=== PATIENT | male | born 1990 | race American Indian/Alaskan Native ===

== ENCOUNTER 2019-08-17 18:21 | Emergency (ER) | payer SELFPAY ==
[2019-08-17 18:39] VITALS: BP 113/70
--- NOTE | 2019-08-17 19:30 | Emergency Department Report ---
Chief Complaint: Chest Pain Stated Complaint: CHEST PAIN Time Seen by Provider: 08/17/19 19:21 - HPI History of Present Illness: 29-year-old -Indian male presents to the emergency room for intermittent left hand tingling and numbness. Patient reports that when his arm is bent it for long period of time it seems to go to sleep. Patient denies any tingling or numbness at this time. Patient came in first reporting chest pain does not have any chest pain at this time. - Exam Vital Signs: Vital Signs 08/17/19 18:36 Temperature 98.3 F Pulse Rate 61 Respiratory 20 Rate Blood Pressure 113/70 [Right] O2 Sat by Pulse 96 Oximetry Physical Exam: Patient is alert and oriented x3 no acute distress Cardiac clear to auscultation bilateral regular rate and rhythm no murmurs appreciated Left arm full range of motion no tenderness no swelling warm to touch capillary refills intact and less than 2sec Patient is ambulatory without difficulties. MSE screening note: Focused history and physical exam performed. Due to findings the following was ordered: 29-year-old -Indian male presents to the emergency room for intermittent left hand tingling and numbness. Patient reports that when his arm is bent it for long period of time it seems to go to sleep. Patient denies any tingling or numbness at this time. Patient came in first reporting chest pain does not have any chest pain at this time. Education to patient on compression of the ulnar radial nerve when arm is bent. Discussed with patient to be aware. Also discussed with patient he can follow- up with a primary care provider patient is been referred to Dr. Stephanie Cha and [facility] ED Disposition for MSE Disposition: Z-07 MED SCREENING EXAM-LEFT Is pt being admited?: No Does the pt Need Aspirin: No Condition: Stable Additional Instructions: refrain from eating salt. Stop smoking. Follow up with a pcp. Referrals: CIELO ALCAZAR MD [Staff Physician] - 3-5 Days [facility] [Provider Group] - 3-5 Days
== END 2019-08-17 19:30 | disposition left against medical advice (07) ==
LOC: ED 18:21
DX: R07.89 Other chest pain (principal); Z53.21 Procedure and treatment not carried out due to patient leaving prior to being seen by health care provider
CPT/HCPCS: 93005

== ENCOUNTER 2019-09-26 14:58 | Emergency (ER) | payer SELFPAY ==
--- NOTE | 2019-09-26 16:29 | Event Note ---
ED Screening Note Date of service: 09/26/19 Time: 16:28 ED Screening Note: Patient presents with complaints of left-sided chest pain and left arm pain and numbness intermittently x1 month States pain is currently present Was recently diagnosed with anxiety, however states this feels different This initial assessment/diagnostic orders/clinical plan/treatment(s) is/are subject to change based on patients health status, clinical progression and re- assessment by fellow clinical providers in the ED. Further treatment and workup at subsequent clinical providers discretion. Patient/guardian urged not to elope from the ED as their condition may be serious if not clinically assessed and managed. Initial orders include: Labs ekg chest xr
--- NOTE | 2019-09-26 17:14 | XRay Report ---
CHEST 2 VIEWS INDICATION / CLINICAL INFORMATION: chest pain. COMPARISON: None available. FINDINGS: SUPPORT DEVICES: None. HEART / MEDIASTINUM: No significant abnormality. LUNGS / PLEURA: No significant pulmonary or pleural abnormality. No pneumothorax. ADDITIONAL FINDINGS: No significant additional findings. IMPRESSION: No significant abnormality Signer Name: Tyson Forbes MD FACR Signed: 09/26/2019 5:09 PM Workstation Name: [id number]
[2019-09-26 18:07] LABS: Basophils # (Auto) 0.1 K/mm3 (0.0-0.1); Eosinophils # (Auto) 0.1 K/mm3 (0.0-0.4); Eosinophils % (Auto) 2.9 % (0.0-4.3); Hematocrit 47.7 % (35.5-45.6); Lymphocytes # (Auto) 1.8 K/mm3 (1.2-5.4); Lymphocytes % (Auto) 36.1 % (13.4-35.0); Mean Corpuscular HGB Conc 34 % (32-34); Mean Corpuscular Volume 92 fl (84-94); Monocytes # (Auto) 0.4 K/mm3 (0.0-0.8); Monocytes % (Auto) 8.6 % (0.0-7.3); Platelet Count 128 K/mm3 (140-440); Red Blood Count 5.21 M/mm3 (3.65-5.03); Red Cell Distribution Width 13.4 % (13.2-15.2)
[2019-09-26 18:35] LABS: Alanine Aminotransferase 23 units/L (7-56); Albumin 4.9 g/dL (3.9-5); BUN/Creatinine Ratio 7; Blood Urea Nitrogen 8 mg/dL (9-20); Calcium 9.8 mg/dL (8.4-10.2); Hemolysis Index 8
--- NOTE | 2019-09-26 20:16 | Emergency Department Report ---
ED General Adult HPI - General Chief complaint: Chest Pain Stated complaint: LEFT ARM PAIN Time Seen by Provider: 09/26/19 19:55 Source: patient Mode of arrival: Ambulatory Limitations: No Limitations - History of Present Illness Initial comments: Patient is a 29-year-old male who presents emergency room with complaints of intermittent left arm pain and tingling over a month. He states that he also has substernal chest pain for over a month. He has no pain currently. He denies any nausea, vomiting, diarrhea, fever, leg swelling, shortness of breath. He denies any recent travel or recent surgery. Past medical history of hypertension and takes amlodipine. Patient states that he did see a primary care doctor who started him on Klonopin. He endorses tobacco use. No allergies to meds. No family history cardiac history. he denies any neck pain. - Related Data Allergies Allergy/AdvReac Type Severity Reaction Status Date / Time No Known Allergies Allergy Verified 09/26/19 15:01 ED Review of Systems ROS: Stated complaint: LEFT ARM PAIN Other details as noted in HPI Comment: All other systems reviewed and negative ED Past Medical Hx - Past Medical History Hx Hypertension: Yes - Surgical History Past Surgical History?: No - Social History Smoking Status: Never Smoker Substance Use Type: None ED Physical Exam - General Limitations: No Limitations General appearance: alert, in no apparent distress - Head Head exam: Present: atraumatic, normocephalic - Eye Eye exam: Present: normal appearance - ENT ENT exam: Present: mucous membranes moist - Neck Neck exam: Present: normal inspection, tenderness. Absent: full ROM - Respiratory Respiratory exam: Present: normal lung sounds bilaterally. Absent: respiratory distress, wheezes, rales, rhonchi, stridor, chest wall tenderness, accessory muscle use, decreased breath sounds, prolonged expiratory - Cardiovascular Cardiovascular Exam: Present: regular rate, normal rhythm, normal heart sounds. Absent: systolic murmur, diastolic murmur, rubs, gallop - Extremities Exam Extremities exam: Present: normal inspection, full ROM, normal capillary refill, other (FROM of the LUE, no bony ttp, no deformity, neurovascularly intact, sensation is fully intact). Absent: tenderness, pedal edema, joint swelling, calf tenderness - Neurological Exam Neurological exam: Present: alert, oriented X3, CN II-XII intact, normal gait. Absent: motor sensory deficit - Psychiatric Psychiatric exam: Present: normal affect, normal mood - Skin Skin exam: Present: warm, dry, intact ED Course Vital Signs 09/26/19 09/26/19 15:04 20:50 Temperature 97.9 F Pulse Rate 97 H 69 Respiratory 17 Rate Blood Pressure 125/84 Blood Pressure 148/99 [Right] O2 Sat by Pulse 100 Oximetry ED Medical Decision Making - Lab Data Result diagrams: 09/26/19 17:30 09/26/19 17:30 Lab Results 09/26/19 09/26/19 09/26/19 Range/Units 17:30 17:30 17:30 WBC 5.0 (4.5-11.0) K/mm3 RBC 5.21 H (3.65-5.03) M/mm3 Hgb 16.0 H (11.8-15.2) gm/dl Hct 47.7 H (35.5-45.6) % MCV 92 (84-94) fl MCH 31 (28-32) pg MCHC 34 (32-34) % RDW 13.4 (13.2-15.2) % Plt Count 128 L (140-440) K/mm3 Lymph % (Auto) 36.1 H (13.4-35.0) % [place] % (Auto) 8.6 H (0.0-7.3) % Eos % (Auto) 2.9 (0.0-4.3) % Baso % (Auto) 1.0 (0.0-1.8) % Lymph # 1.8 (1.2-5.4) K/mm3 [place] # 0.4 (0.0-0.8) K/mm3 Eos # 0.1 (0.0-0.4) K/mm3 Baso # 0.1 (0.0-0.1) K/mm3 Seg Neutrophils % 51.4 (40.0-70.0) % Seg Neutrophils # 2.6 (1.8-7.7) K/mm3 Sodium 141 (137-145) mmol/L Potassium 4.0 (3.6-5.0) mmol/L Chloride 103.2 (98-107) mmol/L Carbon Dioxide 23 (22-30) mmol/L Anion Gap 19 mmol/L BUN 8 L (9-20) mg/dL Creatinine 1.2 (0.8-1.3) mg/dL Estimated GFR > 60 ml/min BUN/Creatinine Ratio 7 % Glucose 81 (75-100) mg/dL Calcium 9.8 (8.4-10.2) mg/dL Total Bilirubin 0.80 (0.1-1.2) mg/dL AST 19 (5-40) units/L ALT 23 (7-56) units/L Alkaline Phosphatase 49 (35-129) units/L Troponin T < 0.010 (0.00-0.029) ng/mL Total Protein 8.2 (6.3-8.2) g/dL Albumin 4.9 (3.9-5) g/dL Albumin/Globulin Ratio 1.5 % - EKG Data EKG shows normal: sinus rhythm, axis, intervals, QRS complexes Rate: normal - EKG Data 09/26/19 20:18 no STEMI - Radiology Data Radiology results: report reviewed CHEST 2 VIEWS INDICATION / CLINICAL INFORMATION: chest pain. COMPARISON: None available. FINDINGS: SUPPORT DEVICES: None. HEART / MEDIASTINUM: No significant abnormality. LUNGS / PLEURA: No significant pulmonary or pleural abnormality. No pneumothorax. ADDITIONAL FINDINGS: No significant additional findings. IMPRESSION: No significant abnormality Signer Name: Tyson Forbes MD FACR Signed: 09/26/2019 5:09 PM Workstation Name: [id number] Transcribed By: MS Dictated By: Tyson Forbes MD Electronically Authenticated By: Tyson Forbes MD Signed Date/Time: 09/26/191708 DD/ 08 TD/TT: - Medical Decision Making Patient is a 29-year-old male who presents emergency room with complaints of intermittent left arm pain and tingling over a month. He states that he also has substernal chest pain for over a month. He has no pain currently. He denies any nausea, vomiting, diarrhea, fever, leg swelling, shortness of breath. He denies any recent travel or recent surgery. Past medical history of hypertension and takes amlodipine. Patient states that he did see a primary care doctor who started him on Klonopin. He endorses tobacco use. No allergies to meds. No family history cardiac history. he denies any neck pain. Vitals are normal. No abnormality on physical examination as documented in chart. EKG within normal limits. Chest x-ray with no acute process. Labs are normal. Troponin is negative. PERC criteria negative for PE. Patient has been having these symptoms ongoing for over a month and was diagnosed with anxiety and started on Klonopin by his primary care physician. He is presenting today with atypical chest pain but has no pain currently. Patient's heart score is 2, GINO score 0, very low risk for cardiac event, do not suspect ACS at this time. Advised patient Please continue taking your medications that you are prescribed by your previous doctors. Avoid tobacco use. Follow-up with a primary care doctor. Follow-up with a yard laborer. Follow-up with [facility]. Return to emergency room immediately for any new or worsening symptoms. - Differential Diagnosis PTX, PNA, anxiety, anemia, GERD, PUD, ACS, costochondritis, pericarditis Critical care attestation.: If time is entered above; I have spent that time in minutes in the direct care of this critically ill patient, excluding procedure time. ED Disposition Clinical Impression: Atypical chest pain, Tingling of left upper extremity Disposition: DC- TO HOME OR SELFCARE Is pt being admited?: No Does the pt Need Aspirin: No Condition: Stable Instructions: Chest Pain (ED) Additional Instructions: Please continue taking your medications that you are prescribed by your previous doctors. Avoid tobacco use. Follow-up with a primary care doctor. Follow-up with a yard laborer. Follow-up with [facility]. Return to emergency room immediately for any new or worsening symptoms. Referrals: [facility] MD LINSEY [Primary Care Provider] - 2-3 Days LIZETH HAN MD [Staff Physician] - 2-3 Days [facility] [Outside] - 2-3 Days Time of Disposition: 20:17 Print Language: SIER[place] LEONEAN
[2019-09-26 20:51] VITALS: BP 148/99
== END 2019-09-26 20:51 | disposition home or self-care (01) ==
LOC: ED 14:58
DX: R20.2 Paresthesia of skin (principal); R07.89 Other chest pain; I10 Essential (primary) hypertension
CPT/HCPCS: 36415; 71046; 80053; 84484; 85025; 93005

== ENCOUNTER 2019-10-25 16:51 | Emergency (ER) | payer SELFPAY ==
[2019-10-25 17:02] VITALS: BP 137/87
--- NOTE | 2019-10-25 18:01 | XRay Report ---
CHEST 1 VIEW 10/25/2019 5:19 PM INDICATION / CLINICAL INFORMATION: Chest Pain. COMPARISON: 2 views of the chest from 09/26/2019. FINDINGS: SUPPORT DEVICES: None. HEART / MEDIASTINUM: No significant abnormality. LUNGS / PLEURA: No significant pulmonary or pleural abnormality. No pneumothorax. ADDITIONAL FINDINGS: No significant additional findings. IMPRESSION: 1. No acute abnormality of the chest. Signer Name: Shay Truong MD Signed: 10/25/2019 5:56 PM Workstation Name: [id number]
[2019-10-25] MEDS ORDERED: ALUM-MAG HYDROXIDE-SIMETHICONE 200-200-20MG/5ML ORAL LIQD 30 ML PO ONE (18:28)
[2019-10-25] MEDS ORDERED: LIDOCAINE VISCOUS 2% 15 ML ORAL LIQD PO ONE (18:28)
--- NOTE | 2019-10-25 18:30 | Emergency Department Report ---
ED Chest Pain HPI - General Chief Complaint: Chest Pain Stated Complaint: CHEST PAIN, CHILLS Time Seen by Provider: 10/25/19 18:02 Source: patient Mode of arrival: Ambulatory Limitations: No Limitations - History of Present Illness Initial Comments: This is a pleasant 29-year-old male who presents the emergency department the chief complaint of substernal chest pressure with tingling in his left arm over the past many months. He reports he has been coming back and forth to the emergency department multiple times for this issue. He reports this usually occurs at night and will make it difficult for him to sleep. He rates his current pain is a 6 out of 10 describes it as pressure points to the center of his chest. He states at night when he tries to go to bed the pain will intensify and would not allow him to sleep. He states he has not slept in 2 days. He reports a past medical history of hypertension, denies any history of hyperlipidemia, diabetes, smoking, illicit drug use specifically denying cocaine, amphetamines. Denies family history of cardiovascular disease or thromboembolic disease. He denies any recent travel or immobilization. He denies any associated fevers, chills, night sweats, headache, dizziness, blurry vision, nausea, vomiting, diarrhea, shortness of breath, hemoptysis, lower extremity edema or any other associated symptoms. - Related Data Previous Rx's Medication Instructions Recorded Last Taken Type Omeprazole 20 mg PO DAILY #30 capsule. 10/25/19 Unknown Rx Allergies Allergy/AdvReac Type Severity Reaction Status Date / Time No Known Allergies Allergy Verified 09/26/19 15:01 Heart Score - HEART Score History: Slightly suspicious EKG: Normal Age: < 45 Risk factors: 1-2 risk factors Troponin: < normal limit HEART Score: 1 ED Review of Systems ROS: Stated complaint: CHEST PAIN, CHILLS Other details as noted in HPI Comment: All other systems reviewed and negative Constitutional: denies: chills, fever Eyes: denies: eye pain, eye discharge, vision change ENT: denies: ear pain, throat pain Respiratory: denies: cough, shortness of breath, wheezing Cardiovascular: as per HPI, chest pain. denies: palpitations Endocrine: no symptoms reported Gastrointestinal: denies: abdominal pain, nausea, diarrhea Genitourinary: denies: urgency, dysuria Musculoskeletal: denies: back pain, joint swelling, arthralgia Skin: denies: rash, lesions Neurological: denies: headache, weakness, paresthesias Psychiatric: denies: anxiety, depression Hematological/Lymphatic: denies: easy bleeding, easy bruising ED Past Medical Hx - Past Medical History Previous Medical History?: Yes Hx Hypertension: Yes - Surgical History Past Surgical History?: No - Social History Smoking Status: Never Smoker Substance Use Type: None - Medications Home Medications: Home Medications Medication Instructions Recorded Confirmed Last Taken Type Omeprazole 20 mg PO DAILY #30 capsule. 10/25/19 Unknown Rx ED Physical Exam - General Limitations: No Limitations General appearance: alert, in no apparent distress - Head Head exam: Present: atraumatic, normocephalic - Eye Eye exam: Present: normal appearance, PERRL Pupils: Present: normal accommodation - ENT ENT exam: Present: normal exam, normal orophraynx, mucous membranes moist - Neck Neck exam: Present: normal inspection, full ROM. Absent: tenderness, meningismus - Respiratory Respiratory exam: Present: normal lung sounds bilaterally. Absent: respiratory distress, wheezes, rales, rhonchi, stridor - Cardiovascular Cardiovascular Exam: Present: regular rate, normal rhythm, normal heart sounds. Absent: systolic murmur, diastolic murmur, rubs, gallop - GI/Abdominal GI/Abdominal exam: Present: soft, normal bowel sounds. Absent: distended, guarding, rebound, rigid - Rectal Rectal exam: Present: deferred - Extremities Exam Extremities exam: Present: normal inspection, full ROM. Absent: tenderness, calf tenderness (Negative Homans sign bilaterally, normal equal radial pulses bilaterally.) - Back Exam Back exam: Present: normal inspection, full ROM. Absent: tenderness, CVA tenderness (R), CVA tenderness (L) - Neurological Exam Neurological exam: Present: alert, oriented X3, normal gait - Psychiatric Psychiatric exam: Present: normal affect, normal mood - Skin Skin exam: Present: warm, dry, intact, normal color. Absent: rash ED Course Vital Signs 10/25/19 17:00 Temperature 98.8 F Pulse Rate 92 H Respiratory 16 Rate Blood Pressure 137/87 O2 Sat by Pulse 100 Oximetry JOSE score - Jose Score Age > 65: (0) No Aspirin use within the Past 7 Days: (0) No 3 or more CAD Risk Factors: (0) No 2 or more Angina events in past 24 hrs: (0) No Known CAD with more than 50% Stenosis: (0) No Elevated Cardiac Markers: (0) No ST Deviation Greater than 0.5mm: (0) No JOSE Score: 0 ED Medical Decision Making - Lab Data Result diagrams: 10/25/19 18:44 10/25/19 18:44 Lab Results 10/25/19 10/25/19 10/25/19 Range/Units 18:44 18:44 18:44 WBC 5.0 (4.5-11.0) K/mm3 RBC 4.87 (3.65-5.03) M/mm3 Hgb 14.9 (11.8-15.2) gm/dl Hct 44.3 (35.5-45.6) % MCV 91 (84-94) fl MCH 31 (28-32) pg MCHC 34 (32-34) % RDW 13.3 (13.2-15.2) % Plt Count 119 L (140-440) K/mm3 Lymph % (Auto) 29.6 (13.4-35.0) % [place] % (Auto) 8.9 H (0.0-7.3) % Eos % (Auto) 1.7 (0.0-4.3) % Baso % (Auto) 0.6 (0.0-1.8) % Lymph # 1.5 (1.2-5.4) K/mm3 [place] # 0.5 (0.0-0.8) K/mm3 Eos # 0.1 (0.0-0.4) K/mm3 Baso # 0.0 (0.0-0.1) K/mm3 Seg Neutrophils % 59.2 (40.0-70.0) % Seg Neutrophils # 3.0 (1.8-7.7) K/mm3 PT 13.7 (12.2-14.9) Sec. INR 1.03 (0.87-1.13) APTT 35.4 (24.2-36.6) Sec. D-Dimer 135.00 (0-234) ng/mlDDU Sodium 137 (137-145) mmol/L Potassium 3.7 (3.6-5.0) mmol/L Chloride 103.9 (98-107) mmol/L Carbon Dioxide 19 L (22-30) mmol/L Anion Gap 18 mmol/L BUN 9 (9-20) mg/dL Creatinine 1.3 (0.8-1.3) mg/dL Estimated GFR > 60 ml/min BUN/Creatinine Ratio 7 % Glucose 96 (75-100) mg/dL Calcium 9.6 (8.4-10.2) mg/dL Total Bilirubin 0.50 (0.1-1.2) mg/dL AST 18 (5-40) units/L ALT 31 (7-56) units/L Alkaline Phosphatase 46 (35-129) units/L Troponin T (0.00-0.029) ng/mL Total Protein 7.2 (6.3-8.2) g/dL Albumin 4.3 (3.9-5) g/dL Albumin/Globulin Ratio 1.5 % 10/25/19 10/25/19 Range/Units 18:44 20:59 WBC (4.5-11.0) K/mm3 RBC (3.65-5.03) M/mm3 Hgb (11.8-15.2) gm/dl Hct (35.5-45.6) % MCV (84-94) fl MCH (28-32) pg MCHC (32-34) % RDW (13.2-15.2) % Plt Count (140-440) K/mm3 Lymph % (Auto) (13.4-35.0) % [place] % (Auto) (0.0-7.3) % Eos % (Auto) (0.0-4.3) % Baso % (Auto) (0.0-1.8) % Lymph # (1.2-5.4) K/mm3 [place] # (0.0-0.8) K/mm3 Eos # (0.0-0.4) K/mm3 Baso # (0.0-0.1) K/mm3 Seg Neutrophils % (40.0-70.0) % Seg Neutrophils # (1.8-7.7) K/mm3 PT (12.2-14.9) Sec. INR (0.87-1.13) APTT (24.2-36.6) Sec. D-Dimer (0-234) ng/mlDDU Sodium (137-145) mmol/L Potassium (3.6-5.0) mmol/L Chloride (98-107) mmol/L Carbon Dioxide (22-30) mmol/L Anion Gap mmol/L BUN (9-20) mg/dL Creatinine (0.8-1.3) mg/dL Estimated GFR ml/min BUN/Creatinine Ratio % Glucose (75-100) mg/dL Calcium (8.4-10.2) mg/dL Total Bilirubin (0.1-1.2) mg/dL AST (5-40) units/L ALT (7-56) units/L Alkaline Phosphatase (35-129) units/L Troponin T < 0.010 < 0.010 (0.00-0.029) ng/mL Total Protein (6.3-8.2) g/dL Albumin (3.9-5) g/dL Albumin/Globulin Ratio % - EKG Data -: EKG Interpreted by Wy EKG shows normal: sinus rhythm Rate: normal - EKG Data When compared to previous EKG there are: no significant change (Sinus rhythm with a ventricular rate of 76 bpm, no acute ST or T wave abnormalities, no STEMI, normal axis, normal intervals, no change when compared to 09/26/2019 or 08/17/2019) - Radiology Data Radiology results: report reviewed XRay Report Signed Patient: CHRISTA YOUNG MR# : [id number] : 1990 Acct:[id number] Age/Sex: 29 / M ADM Date: 10/25/19 Loc: ED Attending Dr: Ordering Physician: WINSTON HEARD MD Date of Service: 10/25/19 Procedure(s): XR chest 1V ap Accession Number(s): [id number] cc: ED MD ORQUIDEA Fluoro Time In Minutes: CHEST 1 VIEW 10/25/2019 5:19 PM INDICATION / CLINICAL INFORMATION: Chest Pain. COMPARISON: 2 views of the chest from 09/26/2019. FINDINGS: SUPPORT DEVICES: None. HEART / MEDIASTINUM: No significant abnormality. LUNGS / PLEURA: No significant pulmonary or pleural abnormality. No pneumothorax. ADDITIONAL FINDINGS: No significant additional findings. IMPRESSION: 1. No acute abnormality of the chest. Signer Name: Shay Truong MD Signed: 10/25/2019 5:56 PM Workstation Name: [id number] Transcribed By: LINDA Dictated By: Shay Truong MD Electronically Authenticated By: Shay Truong MD Signed Date/Time: 10/25/19 2806 - Medical Decision Making Patient nontoxic in no acute distress. Vitals are stable. EKG was unchanged from previous and the patient had 2- troponins 2 hours apart and the heart score was 1 making him very low risk for ACS at this time. He had no evidence of pneumothorax or pneumo mediastinum or pneumoperitoneum on x-ray and no evidence of pneumonia. He had no widening of the mediastinum, no tearing or ripping pain to the back and normal equal radial pulses bilaterally making an acute aortic dissection less likely. He had a negative d-dimer and is typically PERC negative making PE unlikely. He was given a GI cocktail but states this did not affect his pain. After further questioning he did report that his pain at night is associated with some belching and burping I think this could be related to some acid reflux. Educated him about diet changes drink a full glass of water with every meal and GI follow-up. Also educated the patient about proper sleep hygiene and after further questioning he did report that he does play video games for hours a day and night and this may be related to his poor sleep at this time. I recommended melatonin and Benadryl and outpatient follow-up with GI and cardiology as needed. Patient instructed to return to the [facility] department he develops any change or worsening symptoms. He verbalized understanding the diagnosis, treatment plan and follow-up instructions and all his questions were answered. - Differential Diagnosis ACS, PE, Pneumonia, GERD, Pneumothorax, Aortic dissection Critical care attestation.: If time is entered above; I have spent that time in minutes in the direct care of this critically ill patient, excluding procedure time. ED Disposition Clinical Impression: Acute nonspecific chest pain with low risk of coronary artery disease Disposition: DC-01 TO HOME OR SELFCARE Is pt being admited?: No Condition: Stable Instructions: Chest Pain (ED) Prescriptions: Omeprazole 20 mg PO DAILY #30 capsule. Referrals: ROCKY DEVINE MD [Primary Care Provider] - 3-5 Days [facility] [Provider Group] - 3-5 Days [facility] [Provider Group] - 3-5 Days CIELO ALCAZAR MD [Staff Physician] - 3-5 Days [facility] [Provider Group] - 3-5 Days Time of Disposition: 21:39
[2019-10-25 19:20] LABS: Alanine Aminotransferase 31 units/L (7-56); Albumin 4.3 g/dL (3.9-5); BUN/Creatinine Ratio 7; Blood Urea Nitrogen 9 mg/dL (9-20); Calcium 9.6 mg/dL (8.4-10.2); Hemolysis Index 20
[2019-10-25 19:31] LABS: Basophils % (Auto) 0.6 % (0.0-1.8); Eosinophils # (Auto) 0.1 K/mm3 (0.0-0.4); Eosinophils % (Auto) 1.7 % (0.0-4.3); Hematocrit 44.3 % (35.5-45.6); Hemoglobin 14.9 gm/dl (11.8-15.2); Lymphocytes # (Auto) 1.5 K/mm3 (1.2-5.4); Lymphocytes % (Auto) 29.6 % (13.4-35.0); Mean Corpuscular HGB Conc 34 % (32-34); Mean Corpuscular Volume 91 fl (84-94); Monocytes # (Auto) 0.5 K/mm3 (0.0-0.8); Monocytes % (Auto) 8.9 % (0.0-7.3); Platelet Count 119 K/mm3 (140-440); Red Blood Count 4.87 M/mm3 (3.65-5.03); Red Cell Distribution Width 13.3 % (13.2-15.2)
[2019-10-25 19:40] LABS: INR 1.03 (0.87-1.13)
[2019-10-25 19:41] LABS: Partial Thromboplastin Time 35.4 Sec. (24.2-36.6)
== END 2019-10-25 21:45 | disposition home or self-care (01) ==
LOC: ED 16:51
DX: I25.119 Atherosclerotic heart disease of native coronary artery with unspecified angina pectoris (principal); I10 Essential (primary) hypertension; Z79.899 Other long term (current) drug therapy
CPT/HCPCS: 36415; 71045; 80053; 84484; 85025; 85379; 85610; 85730; 93005

== ENCOUNTER 2019-10-30 23:21 | Emergency (ER) | payer SELFPAY ==
[2019-10-31 00:24] VITALS: BP 107/76
--- NOTE | 2019-10-31 01:24 | XRay Report ---
CHEST 1 VIEW INDICATION: Chest Pain COMPARISON: 10/25/2019 FINDINGS: SUPPORT DEVICES: None. HEART / MEDIASTINUM: No significant abnormality. LUNGS / PLEURA: No significant pulmonary or pleural abnormality. No pneumothorax. ADDITIONAL FINDINGS: IMPRESSION: 1. No acute cardiopulmonary disease Signer Name: Deacon Martinez MD Signed: 10/31/2019 1:20 AM Workstation Name: [id number]
--- NOTE | 2019-10-31 01:27 | Emergency Department Report ---
ED General Adult HPI - General Chief complaint: Chest Pain Stated complaint: LEFT ARM PAIN/CHEST PAIN Time Seen by Provider: 10/31/19 01:09 Source: patient Mode of arrival: Ambulatory Limitations: No Limitations - History of Present Illness Initial comments: CC: arm pain, chest pain HPI: This is a healthy 29-year-old male with history of hypertension who presents with left arm pain central chest pain for 2 months. Pain in the left forearm has been persistent dull. No change with movement. Patient has intermittent nondescript chest pain. He feels anxious at times. He denies depression. Denies suicidal ideation. Currently symptom-free at this time. -: Gradual, month(s) (2) Location: chest Consistency: intermittent Improves with: none Worsens with: none Associated Symptoms: chest pain, other (left arm pain) - Related Data Previous Rx's Medication Instructions Recorded Last Taken Type Omeprazole 20 mg PO DAILY #30 capsule. 10/25/19 Unknown Rx Allergies Allergy/AdvReac Type Severity Reaction Status Date / Time No Known Allergies Allergy Verified 09/26/19 15:01 ED Review of Systems ROS: Stated complaint: LEFT ARM PAIN/CHEST PAIN Other details as noted in HPI Comment: All other systems reviewed and negative Constitutional: denies: fever, malaise Respiratory: denies: cough, shortness of breath Cardiovascular: chest pain Gastrointestinal: denies: abdominal pain, nausea, vomiting ED Past Medical Hx - Past Medical History Previous Medical History?: Yes Hx Hypertension: Yes - Family History Family history: hypertension - Social History Smoking Status: Never Smoker Substance Use Type: None - Medications Home Medications: Home Medications Medication Instructions Recorded Confirmed Last Taken Type Omeprazole 20 mg PO DAILY #30 capsule. 10/25/19 Unknown Rx ED Physical Exam - General Limitations: No Limitations General appearance: alert, in no apparent distress, other (pleasant, nad) - Head Head exam: Present: atraumatic, normocephalic - Eye Eye exam: Present: normal appearance - ENT ENT exam: Present: mucous membranes moist - Neck Neck exam: Present: normal inspection, full ROM - Respiratory Respiratory exam: Present: normal lung sounds bilaterally. Absent: respiratory distress, wheezes, rales, rhonchi - Cardiovascular Cardiovascular Exam: Present: regular rate, normal rhythm, normal heart sounds. Absent: systolic murmur, diastolic murmur, rubs, gallop - GI/Abdominal GI/Abdominal exam: Present: soft, normal bowel sounds. Absent: distended, tenderness, guarding, rebound - Rectal Rectal exam: Present: deferred - Extremities Exam Extremities exam: Present: normal inspection - Expanded Upper Extremity Exam Left Shoulder Exam: Present: normal inspection, full ROM. Absent: tenderness, swelling, abrasion Upper Arm exam: Present: normal inspection, full ROM. Absent: tenderness, swelling Elbow exam: Present: normal inspection, full ROM. Absent: tenderness, swelling, abrasion Forearm Wrist exam: Present: normal inspection, full ROM. Absent: tenderness, swelling, abrasion Hand Wrist exam: Present: normal inspection, full ROM - Back Exam Back exam: Present: normal inspection - Neurological Exam Neurological exam: Present: alert, oriented X3 - Psychiatric Psychiatric exam: Present: normal affect, normal mood - Skin Skin exam: Present: warm, dry, intact, normal color. Absent: rash ED Course Vital Signs 10/30/19 23:27 Temperature 98.1 F Pulse Rate 79 Respiratory 17 Rate Blood Pressure 107/76 O2 Sat by Pulse 98 Oximetry ED Medical Decision Making - EKG Data -: EKG Interpreted by Ak EKG shows normal: sinus rhythm, axis, intervals, QRS complexes, ST-T waves Rate: normal - EKG Data Interpretation: normal EKG - Radiology Data Radiology results: report reviewed, image reviewed cxr pa/lateral: nap - Medical Decision Making This is a 21-year-old male who presents with recurrent chest pain. Patient has been evaluated several times this year for similar symptoms. Differential diagnosis includes pericarditis, musculoskeletal chest wall pain, anxiety reaction, PERC negative for PE. No evidence of pneumonia or pneumothorax on chest radiograph. Difficult to unify symptoms into 1 diagnosis considering both arm pain chest pain. I do not suspect ACS. Possibly musculoskeletal pain of the arm and chest. Strongly encourage patient to have full physical exam by outpatient medicine physician to who he was referred. Critical care attestation.: If time is entered above; I have spent that time in minutes in the direct care of this critically ill patient, excluding procedure time. ED Disposition Clinical Impression: Acute nonspecific chest pain with low risk of coronary artery disease, Arm pain, left Disposition: DC-01 TO HOME OR SELFCARE Is pt being admited?: No Does the pt Need Aspirin: No Condition: Stable Instructions: Chest Pain (ED) Referrals: CIELO ALCAZAR MD [Staff Physician] - 3-5 Days
== END 2019-10-31 01:53 | disposition home or self-care (01) ==
LOC: ED 23:21
DX: I25.10 Atherosclerotic heart disease of native coronary artery without angina pectoris (principal); M79.602 Pain in left arm; I10 Essential (primary) hypertension; Z79.899 Other long term (current) drug therapy
CPT/HCPCS: 71045; 93005; 99283

== ENCOUNTER 2019-12-03 09:12 | Emergency (ER) | payer SELFPAY ==
--- NOTE | 2019-12-03 10:17 | XRay Report ---
CHEST 2 VIEWS INDICATION: Chest Pain. COMPARISON: October 31, 2019 FINDINGS: Support devices: None. Heart: Within normal limits. Lungs: No acute air space or interstitial disease. Pleura: No significant pleural effusion. No pneumothorax. Additional findings: None. IMPRESSION: 1. No acute findings. Signer Name: Deacon Martinez MD Signed: 12/03/2019 10:12 AM Workstation Name: [id number]
[2019-12-03 10:51] LABS: Basophils % (Auto) 0.5 % (0.0-1.8); Eosinophils # (Auto) 0.1 K/mm3 (0.0-0.4); Eosinophils % (Auto) 2.2 % (0.0-4.3); Hematocrit 48.4 % (35.5-45.6); Hemoglobin 16.3 gm/dl (11.8-15.2); Lymphocytes # (Auto) 2.6 K/mm3 (1.2-5.4); Lymphocytes % (Auto) 44.1 % (13.4-35.0); Mean Corpuscular HGB Conc 34 % (32-34); Mean Corpuscular Volume 91 fl (84-94); Monocytes # (Auto) 0.5 K/mm3 (0.0-0.8); Monocytes % (Auto) 8.9 % (0.0-7.3); Platelet Count 114 K/mm3 (140-440); Red Blood Count 5.33 M/mm3 (3.65-5.03); Red Cell Distribution Width 13.2 % (13.2-15.2)
[2019-12-03 11:02] LABS: INR 0.92 (0.87-1.13)
[2019-12-03 11:03] LABS: Partial Thromboplastin Time 31.1 Sec. (24.2-36.6)
[2019-12-03 11:13] LABS: BUN/Creatinine Ratio 8; Blood Urea Nitrogen 9 mg/dL (9-20); Calcium 10.1 mg/dL (8.4-10.2); Hemolysis Index 8
[2019-12-03 11:33] LABS: Bilirubin,Urine NEG (Negative); Blood,Urine NEG (Negative); Color,Urine Yellow (Yellow); Mucus,Urine FEW /HPF; Protein,Urine <15 mg/dL mg/dL (Negative); Urobilinogen,Urine < 2.0 mg/dL (<2.0)
[2019-12-03 11:41] LABS: Amphetamine Screen,Urine Negative; Benzodiazepines Screen,Urine Negative; Cannabinoid Screen,Urine Negative; Cocaine Screen,Urine Negative; Methadone Screen,Urine Negative; Opiate Screen,Urine Negative
[2019-12-03 12:51] LABS: Alanine Aminotransferase 27 units/L (7-56); Albumin 4.9 g/dL (3.9-5)
[2019-12-03 12:53] LABS: Bilirubin,Direct < 0.2 mg/dL (0-0.2)
--- NOTE | 2019-12-03 13:28 | Emergency Department Report ---
ED General Adult HPI - General Chief complaint: Chest Pain Stated complaint: SHORTNESS OF BREATH/CHILLS Time Seen by Provider: 12/03/19 11:10 Source: patient Mode of arrival: Ambulatory Limitations: No Limitations - History of Present Illness Initial comments: Patient is a 29-year-old male presents emergency room with complaints of an episode of chest pain that occurred last night. He states that he was up very late last night. He states that in the middle of the night he began feeling substernal chest pressure, racing heartbeat, began having rapid breathing, tingling in his left arm. It appears patient has had these symptoms intermittently for 4 months. Patient has been evaluated emergency department on multiple occasions for the symptoms. Patient states that he was also evaluated at [facility]. He states that he spoke with a generator man who advised him his EKG was normal. Patient states that he does have a history of anxiety and is supposed to be taking Klonopin. He states that he ran out of his medication 4 days ago. He denies any cough, fever, nausea, vomiting, diarrhea, radiation of the pain, hemoptysis, leg swelling. He denies any recent travel, sick contacts, recent surgery, immobilization. He denies any other past medical history. No allergies to medications. He is a non-smoker and nondrinker. He denies any family history of AL. Severity scale (0 -10): 7 - Related Data Previous Rx's Medication Instructions Recorded Last Taken Type Omeprazole 20 mg PO DAILY #30 capsule. 10/25/19 Unknown Rx Allergies Allergy/AdvReac Type Severity Reaction Status Date / Time No Known Allergies Allergy Verified 09/26/19 15:01 ED Review of Systems ROS: Stated complaint: SHORTNESS OF BREATH/CHILLS Other details as noted in HPI Comment: All other systems reviewed and negative ED Past Medical Hx - Past Medical History Hx Hypertension: Yes Hx Asthma: Yes - Surgical History Past Surgical History?: No - Social History Smoking Status: Never Smoker Substance Use Type: None - Medications Home Medications: Home Medications Medication Instructions Recorded Confirmed Last Taken Type Omeprazole 20 mg PO DAILY #30 capsule. 10/25/19 Unknown Rx ED Physical Exam - General Limitations: No Limitations General appearance: alert, in no apparent distress - Head Head exam: Present: atraumatic, normocephalic - Eye Eye exam: Present: normal appearance - ENT ENT exam: Present: mucous membranes moist - Respiratory Respiratory exam: Present: normal lung sounds bilaterally. Absent: respiratory distress, wheezes, rales, rhonchi, stridor, chest wall tenderness, accessory muscle use, decreased breath sounds, prolonged expiratory - Cardiovascular Cardiovascular Exam: Present: regular rate, normal rhythm, normal heart sounds. Absent: systolic murmur, diastolic murmur, rubs, gallop - Neurological Exam Neurological exam: Present: alert, oriented X3 - Psychiatric Psychiatric exam: Present: normal affect, normal mood - Skin Skin exam: Present: warm, dry, intact ED Course Vital Signs 12/03/19 12/03/19 09:38 13:36 Temperature 97.6 F Pulse Rate 87 74 Respiratory 20 16 Rate Blood Pressure 154/101 128/84 [Right] O2 Sat by Pulse 98 98 Oximetry ED Medical Decision Making - Lab Data Result diagrams: 12/03/19 10:12/03/19 10:01 Lab Results 12/03/19 12/03/19 12/03/19 Range/Units 10: 10: 10:01 WBC 5.9 (4.5-11.0) K/mm3 RBC 5.33 H (3.65-5.03) M/mm3 Hgb 16.3 H (11.8-15.2) gm/dl Hct 48.4 H (35.5-45.6) % MCV 91 (84-94) fl MCH 31 (28-32) pg MCHC 34 (32-34) % RDW 13.2 (13.2-15.2) % Plt Count 114 L (140-440) K/mm3 Lymph % (Auto) 44.1 H (13.4-35.0) % [place] % (Auto) 8.9 H (0.0-7.3) % Eos % (Auto) 2.2 (0.0-4.3) % Baso % (Auto) 0.5 (0.0-1.8) % Lymph # (Auto) 2.6 (1.2-5.4) K/mm3 [place] # (Auto) 0.5 (0.0-0.8) K/mm3 Eos # (Auto) 0.1 (0.0-0.4) K/mm3 Baso # (Auto) 0.0 (0.0-0.1) K/mm3 Seg Neutrophils % 44.3 (40.0-70.0) % Seg Neutrophils # 2.6 (1.8-7.7) K/mm3 PT 12.5 (12.2-14.9) Sec. INR 0.92 (0.87-1.13) APTT 31.1 (24.2-36.6) Sec. Sodium 142 (137-145) mmol/L Potassium 3.7 (3.6-5.0) mmol/L Chloride 103.4 (98-107) mmol/L Carbon Dioxide 24 (22-30) mmol/L Anion Gap 18 mmol/L BUN 9 (9-20) mg/dL Creatinine 1.1 (0.8-1.3) mg/dL Estimated GFR > 60 ml/min BUN/Creatinine Ratio 8 % Glucose 94 (75-100) mg/dL Calcium 10.1 (8.4-10.2) mg/dL Total Bilirubin (0.1-1.2) mg/dL Direct Bilirubin (0-0.2) mg/dL Indirect Bilirubin mg/dL AST (5-40) units/L ALT (7-56) units/L Alkaline Phosphatase (35-129) units/L Troponin T (0.00-0.029) ng/mL Total Protein (6.3-8.2) g/dL Albumin (3.9-5) g/dL Albumin/Globulin Ratio % Lipase 46 (13-60) units/L Urine Color (Yellow) Urine Turbidity (Clear) Urine pH (5.0-7.0) Ur Specific [place] (1.003-1.030) Urine Protein (Negative) mg/dL Urine Glucose (UA) (Negative) mg/dL Urine Ketones (Negative) mg/dL Urine Blood (Negative) Urine Nitrite (Negative) Urine Bilirubin (Negative) Urine Urobilinogen (<2.0) mg/dL Ur Leukocyte Esterase (Negative) Urine WBC (Auto) (0.0-6.0) /HPF Urine RBC (Auto) (0.0-6.0) /HPF Urine Mucus /HPF Urine Opiates Screen Urine Methadone Screen Ur Barbiturates Screen Ur Phencyclidine Scrn Ur Amphetamines Screen U Benzodiazepines Scrn Urine Cocaine Screen U Marijuana (THC) Screen Drugs of Abuse Note Blood Type Antibody Screen 12/03/19 12/03/1912/02/20 Range/Units 10:01 10:01 11:02 WBC (4.5-11.0) K/mm3 RBC (3.65-5.03) M/mm3 Hgb (11.8-15.2) gm/dl Hct (35.5-45.6) % MCV (84-94) fl MCH (28-32) pg MCHC (32-34) % RDW (13.2-15.2) % Plt Count (140-440) K/mm3 Lymph % (Auto) (13.4-35.0) % [place] % (Auto) (0.0-7.3) % Eos % (Auto) (0.0-4.3) % Baso % (Auto) (0.0-1.8) % Lymph # (Auto) (1.2-5.4) K/mm3 [place] # (Auto) (0.0-0.8) K/mm3 Eos # (Auto) (0.0-0.4) K/mm3 Baso # (Auto) (0.0-0.1) K/mm3 Seg Neutrophils % (40.0-70.0) % Seg Neutrophils # (1.8-7.7) K/mm3 PT (12.2-14.9) Sec. INR (0.87-1.13) APTT (24.2-36.6) Sec. Sodium (137-145) mmol/L Potassium (3.6-5.0) mmol/L Chloride (98-107) mmol/L Carbon Dioxide (22-30) mmol/L Anion Gap mmol/L BUN (9-20) mg/dL Creatinine (0.8-1.3) mg/dL Estimated GFR ml/min BUN/Creatinine Ratio % Glucose (75-100) mg/dL Calcium (8.4-10.2) mg/dL Total Bilirubin 0.40 (0.1-1.2) mg/dL Direct Bilirubin < 0.2 (0-0.2) mg/dL Indirect Bilirubin 0.2 mg/dL AST 18 (5-40) units/L ALT 27 (7-56) units/L Alkaline Phosphatase 59 (35-129) units/L Troponin T < 0.010 (0.00-0.029) ng/mL Total Protein 8.1 (6.3-8.2) g/dL Albumin 4.9 (3.9-5) g/dL Albumin/Globulin Ratio 1.5 % Lipase (13-60) units/L Urine Color Yellow (Yellow) Urine Turbidity Clear (Clear) Urine pH 5.0 (5.0-7.0) Ur Specific [place] 1.021 (1.003-1.030) Urine Protein <15 mg/dl (Negative) mg/dL Urine Glucose (UA) Neg (Negative) mg/dL Urine Ketones Neg (Negative) mg/dL Urine Blood Neg (Negative) Urine Nitrite Neg (Negative) Urine Bilirubin Neg (Negative) Urine Urobilinogen < 2.0 (<2.0) mg/dL Ur Leukocyte Esterase Neg (Negative) Urine WBC (Auto) 1.0 (0.0-6.0) /HPF Urine RBC (Auto) 2.0 (0.0-6.0) /HPF Urine Mucus Few /HPF Urine Opiates Screen Urine Methadone Screen Ur Barbiturates Screen Ur Phencyclidine Scrn Ur Amphetamines Screen U Benzodiazepines Scrn Urine Cocaine Screen U Marijuana (THC) Screen Drugs of Abuse Note Blood Type O NEGATIVE Antibody Screen Negative 12/03/19 Range/Units 11:02 WBC (4.5-11.0) K/mm3 RBC (3.65-5.03) M/mm3 Hgb (11.8-15.2) gm/dl Hct (35.5-45.6) % MCV (84-94) fl MCH (28-32) pg MCHC (32-34) % RDW (13.2-15.2) % Plt Count (140-440) K/mm3 Lymph % (Auto) (13.4-35.0) % [place] % (Auto) (0.0-7.3) % Eos % (Auto) (0.0-4.3) % Baso % (Auto) (0.0-1.8) % Lymph # (Auto) (1.2-5.4) K/mm3 [place] # (Auto) (0.0-0.8) K/mm3 Eos # (Auto) (0.0-0.4) K/mm3 Baso # (Auto) (0.0-0.1) K/mm3 Seg Neutrophils % (40.0-70.0) % Seg Neutrophils # (1.8-7.7) K/mm3 PT (12.2-14.9) Sec. INR (0.87-1.13) APTT (24.2-36.6) Sec. Sodium (137-145) mmol/L Potassium (3.6-5.0) mmol/L Chloride (98-107) mmol/L Carbon Dioxide (22-30) mmol/L Anion Gap mmol/L BUN (9-20) mg/dL Creatinine (0.8-1.3) mg/dL Estimated GFR ml/min BUN/Creatinine Ratio % Glucose (75-100) mg/dL Calcium (8.4-10.2) mg/dL Total Bilirubin (0.1-1.2) mg/dL Direct Bilirubin (0-0.2) mg/dL Indirect Bilirubin mg/dL AST (5-40) units/L ALT (7-56) units/L Alkaline Phosphatase (35-129) units/L Troponin T (0.00-0.029) ng/mL Total Protein (6.3-8.2) g/dL Albumin (3.9-5) g/dL Albumin/Globulin Ratio % Lipase (13-60) units/L Urine Color (Yellow) Urine Turbidity (Clear) Urine pH (5.0-7.0) Ur Specific [place] (1.003-1.030) Urine Protein (Negative) mg/dL Urine Glucose (UA) (Negative) mg/dL Urine Ketones (Negative) mg/dL Urine Blood (Negative) Urine Nitrite (Negative) Urine Bilirubin (Negative) Urine Urobilinogen (<2.0) mg/dL Ur Leukocyte Esterase (Negative) Urine WBC (Auto) (0.0-6.0) /HPF Urine RBC (Auto) (0.0-6.0) /HPF Urine Mucus /HPF Urine Opiates Screen Negative Urine Methadone Screen Negative Ur Barbiturates Screen Negative Ur Phencyclidine Scrn Negative Ur Amphetamines Screen Negative U Benzodiazepines Scrn Negative Urine Cocaine Screen Negative U Marijuana (THC) Screen Negative Drugs of Abuse Note Disclamer Blood Type Antibody Screen Vital Signs 12/03/19 12/03/19 09:38 13:36 Temperature 97.6 F Pulse Rate 87 74 Respiratory 20 16 Rate Blood Pressure 154/101 128/84 [Right] O2 Sat by Pulse 98 98 Oximetry - EKG Data EKG shows normal: sinus rhythm, axis, intervals, QRS complexes, ST-T waves Rate: normal - Radiology Data Radiology results: report reviewed CHEST 2 VIEWS INDICATION: Chest Pain. COMPARISON: October 31, 2019 FINDINGS: Support devices: None. Heart: Within normal limits. Lungs: No acute air space or interstitial disease. Pleura: No significant pleural effusion. No pneumothorax. Additional findings: None. IMPRESSION: 1. No acute findings. Signer Name: Deacon Martinez MD Signed: 12/03/2019 10:12 AM Workstation Name: [id number] Transcribed By: CHANDNI Dictated By: Deacon Martinez MD Electronically Authenticated By: Deacon Martinez MD Signed Date/Time: 12/03/191011 DD/ 11 TD/TT: - Medical Decision Making Patient is a 29-year-old male presents emergency room with complaints of an episode of chest pain that occurred last night. He states that he was up very late last night. He states that in the middle of the night he began feeling substernal chest pressure, racing heartbeat, began having rapid breathing, tingl ing in his left arm. It appears patient has had these symptoms intermittently for 4 months. Patient has been evaluated emergency department on multiple occasions for the symptoms. Patient states that he was also evaluated at [facility]. He states that he spoke with a generator man who advised him his EKG was normal. Patient states that he does have a history of anxiety and is supposed to be taking Klonopin. He states that he ran out of his medication 4 days ago. He denies any cough, fever, nausea, vomiting, diarrhea, radiation of the pain, hemoptysis, leg swelling. He denies any recent travel, sick contacts, recent surgery, immobilization. He denies any other past medical history. No allergies to medications. He is a non-smoker and nondrinker. He denies any family history of AL. Initial triage vitals with mildly elevated blood pressure which improved to normal upon repeat. No abnormality on physical examination as documented in chart. Labs are stable. Troponin is negative. UA is within normal limits. UDS is negative. EKG within normal limits. Chest x-ray with no acute process. Patient has been worked up in the emergency department multiple times for chest pain. Patient had a d-dimer last month which was normal, he is PERC criteria negative for PE. Heart score is 0, GINO score is 0, low risk for cardiac event. Do not suspect ACS. It appears his symptoms are more likely related to anxiety. advised pt Please increase your water intake. Avoid caffeine use. Follow-up with your primary care doctor. Follow-up with psychologist/psychiatrist. Return to emergency room for any new or worsening symptoms. - Differential Diagnosis Anxiety, ACS, anemia, pericarditis, PTX, PNA, pleural effusion, GERD, PUD Critical care attestation.: If time is entered above; I have spent that time in minutes in the direct care of this critically ill patient, excluding procedure time. ED Disposition Clinical Impression: Chest pressure, Intermittent palpitations, Anxiety, Tingling of left upper extremity Disposition: DC-01 TO HOME OR SELFCARE Is pt being admited?: No Does the pt Need Aspirin: No Condition: Stable Instructions: Anxiety (ED) Additional Instructions: Please increase your water intake. Avoid caffeine use. Follow-up with your primary care doctor. Follow-up with psychologist/psychiatrist. Return to emergency room for any new or worsening symptoms. Referrals: PRIMARY CARE, [Primary Care Provider] - 2-3 Days [facility] [Outside] - 2-3 Days Time of Disposition: 13:37 Print Language: YEMENI
[2019-12-03 13:36] VITALS: BP 128/84
== END 2019-12-03 13:58 | disposition home or self-care (01) ==
LOC: ED 09:12
DX: F41.9 Anxiety disorder, unspecified (principal); R07.89 Other chest pain; R00.2 Palpitations; R20.2 Paresthesia of skin; I10 Essential (primary) hypertension; J45.909 Unspecified asthma, uncomplicated; Z79.899 Other long term (current) drug therapy
CPT/HCPCS: 36415; 71046; 80048; 80076; 80307; 81001; 83690; 84484; 85025; 85610; 85730; 86850; 86900; 86901; 93005